=== PATIENT | male | born 1990 | race Caucasian/White ===

== ENCOUNTER 2023-02-26 16:24 | Emergency (ER) | payer SELFPAY ==
[2023-02-26 16:28] VITALS: BP 169/103; PULSE 95; RESP 16; TEMP 36.9; O2SAT 97
--- NOTE | 2023-02-26 17:23 | ED.GENADUL_ITS ---
Discharge Plan Disposition Patient Disposition: Home Discharge Details Clinical Impression: Avulsion of skin of finger Primary Care Provider: Arturo Hobbs ED Provider: Bola Coyle Home Meds and New Rx's Prescriptions: No Action lamotrigine 100 mg tablet 100 mg PO BID Patient Comments: TAKE 1 TABLET BY MOUTH TWICE DAILY Discharge Instructions Instructions: Skin Avulsion (ED), Skin Adhesive Care (ED) Additional Instructions: Watch for any signs of infection and return immediately to the emergency department if these occur. Otherwise keep wound clean and dry. Referrals: Primary Care Provider [Outside] (As needed for reassessment) Discharge Data Discharge Date/Time-TO BE ENTERED AT DEPARTURE: 02/26/23 17:35 Medical Decision Making Patient presenting the emergency department for chief complaint of left thumb injury. He was at work cutting an onion when the knife slipped and he lacerated the left thumb distal aspect. Patient denies any other injury or trauma, numbness tingling, or dysfunction of the extremity. Physical exam shows normal exam except for noted approximately 5 mm skin avulsion and flap to distal left thumb. Exam again is otherwise unremarkable and patient has normal function of the digit otherwise. Patient does have lidocaine allergy and Benadryl injection was offered but patient declined need given that he stated it was not severely painful. Flap was removed and skin adhesive was placed over avulsion once bleeding was controlled with tourniquet. Tourniquet was removed and appropriate hemostasis was achieved using this technique. Patient states he is up-to-date on his tetanus. After discussion of diagnosis and plan of care patient has no further needs, questions, or concerns and states clear understanding to return to the emergency department for any worsening symptoms. This documentation was generated using [employer] system, please disregard any oddities of phrase or misspellings. HPI General Mode of arrival: ambulatory . Date/Time Provider Initiated Documentation: 02/26/23 17:23 . Limitations to Documentation: no limitations . Information obtained by: patient and RN notes reviewed . History of Present Illness 32 year old M presents to the emergency department with the chief complaint of Left thumb laceration, described as mild, and is localized to the left and upper extremity. Patient reports no radiation. Patient started experiencing this minute(s) (30) and it has been constant. No relieving factors improve symptom(s), No exacerbating factors reported . Patient notes no other symptoms.. Patient did receive the following treatments prior to arrival, none Related Data Home Medications Medication Instructions Recorded Confirmed lamotrigine 100 mg tablet 100 mg PO BID 02/26/23 02/26/23 Allergies Allergy/AdvReac Type Severity Reaction Status Date / Time lidocaine AdvReac Unknown Unverified 02/26/23 16:31 General Stated Complaint: Laceration GONZALO: 3 Review of Systems Musculoskeletal Musculoskeletal: Reports as per HPI, Denies arthralgias, Denies numbness, Denies radiating pain into limb and Denies tingling Integumentary/Breasts Skin/Breast: Reports as per HPI and Reports wounds Neurologic Neurologic: Denies numbness and Denies tingling PFSH All Active Problems Avulsion of skin of finger (Acute) Social History Smoking/Tobacco Use Status: Current every day Tobacco Type: e-cigarettes Smoking risk assessment performed?: Yes Alcohol Intake: never Substance use type: does not use Housing: house Do you feel safe at home: Yes Do you feel safe in your relationship?: Yes Exam Const General: cooperative, no acute distress and not ill appearing Orientation: alert, awake and oriented x3 HENMT Mouth: moist mucous membranes Resp Effort & Inspection: normal respiratory effort, able to speak in complete sentences and no respiratory distress Neuro General: patient alert, patient awake, patient oriented x3, moves all extremities and no focal motor deficits Sensory Exam: no sensory deficits noted Extrem General: normal exam except as noted Left upper extremity: hand Details: laceration (Small skin avulsion/flap distal thumb) Course Vital Signs Vital signs: Vital Signs Temperature 36.9 C 02/26/23 16:28 Pulse 95 H 02/26/23 16:28 Respiratory Rate 16 02/26/23 16:28 Blood Pressure 169/103 H 02/26/23 16:28 Pulse Oximetry 97 02/26/23 16:28 Temperature 36.9 C 02/26/23 16:28 Temperature Source Skin 02/26/23 16:28 Pulse 95 H 02/26/23 16:28 Respiratory Rate 16 02/26/23 16:28 Respiratory Effort Normal 02/26/23 16:40 Blood Pressure 169/103 H 02/26/23 16:28 Blood Pressure Position Sitting 02/26/23 16:28 Pulse Oximetry 97 02/26/23 16:28 Oxygen Delivery Method Room Air 02/26/23 16:28 Oxygen Flow Rate 0 02/26/23 16:28 Pain Level 3 02/26/23 16:28
--- OUTSIDE RECORDS SUMMARY | 2023-02-26 17:33 | XMS_ITS | Continuity of Care Document ---
Author Name Unknown Organization [facility] Ambulatory Clinics Address [address] [place] [address] Care Team Providers Care Editing Intern Name Role Phone Sussy Casey MD Primary Care Physician [phone] Encounter [facility]BR [id number] Date(s): 04/04/22 - 04/04/22 [facility] Ambulatory Clinics [address] [place] [address]- Encounter Diagnosis Bipolar disorder(Discharge Diagnosis) - 04/04/22 Dyslipidemia(Discharge Diagnosis) - 04/04/22 Anxiety(Discharge Diagnosis) - 04/04/22 Fatty liver(Discharge Diagnosis) - 04/04/22 Need for vaccination(Discharge Diagnosis) - 04/04/22 Well adult exam(Discharge Diagnosis) - 04/04/22 Discharge Disposition: Home or Self Care Attending Physician: Sussy Casey MD Allergies, Adverse Reactions, Alerts Substance Reaction Severity Status lidocaine severe mo on tongue Severe Activ e Chantix psych reactions Unknown Active oxyCODONE Itchy Unknown Active Assessment and Plan Future Scheduled Tests Laboratory* CBC w/ Diff 04/04/22 * Comprehensive Metabolic Panel 04/04/22 Functional Status 04/04/22 Other exposure to Infectious Disease Non e Immunizations Given and Recorded Vaccine Date Status Refusal Reason tetanus/diphth/pertuss (Tdap) adult/adol 04/04/22 Given Medications ibuprofen 0 Refill(s) Start Date: 02/23/22 Status: Ordered lamoTRIgine 100 mg oral tablet 100 mg = 1 tab, Oral, BID, # 180 tab, 3 Refill(s), Pharmacy: [id number] Start Date: 03/05/22 Status: Ordered Tylenol 325 mg oral tablet 325 mg = 1 tab, Oral, every 4 hr, PRN as needed for pain, 0 Refill(s) Start Date: 02/23/22 Status: Ordered Problem List Condition Confirmation Course Effective Dates Status H ealth Status Informant Anxiety Confirmed Active Auditory hallucinations Confirmed Active Bipolar disorder Confirmed Active Dyslipidemia Confirmed Active Transaminitis Confirmed Active Insomnia Confirmed Active Major depressive disorder 1 Confirmed Active Morbid obesity Confirmed Active Pilonidal cyst Confirmed Active Fatty liver Confirmed Active Tobacco use Confirmed Active Ulcerative colitis 2 Confirmed Active 1remission status unspecified 2family history. Procedures Procedure Date Related Diagnosis Body Site Status Flap procedure 1 Complete d I and D 2 Completed Shoulder repair 3 Complet ed Tonsillectomy Completed 1bascom flap 02/17/2012 2Pilonidal cyst 12/07/2011 311/2010 Vital Signs Most recent to oldest [Reference Range]: 1 Peripheral Pulse Rate [60-100 bpm] 96 bp m (04/04/22 2:02 PM) Blood Pressure [90-140/60-90 mmHg] 120/8 2mmHg (04/04/22 2:02 PM) Weight 127.46 kg (04/04/22 2:02 PM) Weight Measured (lbs) 281.001 lb (04/04/22 2:02 PM) [place] Body Weight Calculated 73 kg (04/04/22 2:02 PM) Height 177.80 cm (04/04/22 2:02 PM) Height/Length Measured (inches) 70 inch (04/04/22 2:02 PM) BSA Measured 2.51 m2 (04/04/22 2:02 PM) Body Mass Index 40.32 kg/m2 (04/04/22 2:02 PM) Social History Social History Type Response Tobacco Never tobacco user T obacco Use:. Sex Physician Outpatient Note * Sussy Casey MD: PERFORM Event Display: Office Clinic Note Physician Authored Date: [id number] ANU FLORENTINO :1990 Age:31 years Sex:Male Visit Date:04/04/2022 Primary Care Physician: Sussy Casey MD Chief Complaint 3 Month Follow Up History of Present Illness Overall patient feels well today.?? Was having some more labile mood??and was concerned about a manic episode on last visit so his Lamictal was increased. ??He is now up to 100 mg twice a day. ??Overall he is very happy with this.?? His mood is good and he generally feels mellow. ??He has a new jobthat is better for him.?? No severe low mood. ??No hopelessness, suicidal or homicidal ideation. ??He does not feel manic. ??No increased impulsivity and he is usually sleeping well at night. ?? He does have a history of fatty liver. ??He is trying to watch his diet and his weight is stable. ??He is also cut down on alcohol. ??He very rarely drinks??and will only have about??2-4 when he does. ??No abdominal pain,??no acid reflux symptoms, no blood in stool or melena.?? No changes in bowel habit. Physical Exam Vitals & Measurements HR:??96??(Peripheral)?? BP:??120/82?? SpO2:??98%?? HT:??177.80??cm?? WT:??127.46??kg?? BMI:??40.32?? BSA:??2.51?? General: Alert and oriented, well nourished, no acute distress. Eye: EOMI, normal conjunctiva. HENT: Normocephalic, clear tympanic membranes, moist oral mucosa, no scleral icterus Neck: Supple, non-tender, ??no lymphadenopathy. Lungs: Clear to auscultation, non-labored respiration. Heart: Normal rate, regular rhythm, no murmur Abdomen: Soft, non-tender, non-distended, no HSM Psychiatric: Cooperative, appropriate mood and affect. Assessment/Plan 1.??Bipolar disorder??F31.9 Patient happy with current medications.?? Mood is good Ordered: CBC w/ Diff, Blood, Routine, 04/04/22, Once, Lab Collect, Bipolar disorder Anxiety Fatty liver,Order for future visit Comprehensive Metabolic Panel, Blood, Routine, 04/04/22, Once, Lab Collect, Bipolar disorder Anxiety Fatty liver, Order for future visit ?? 2.??Dyslipidemia??E78.5 Not yet due for repeat. ??Is trying to watch his diet. ?? 3.??Anxiety??F41.9 Ordered: CBC w/ Diff, Blood, Routine, 04/04/22, Once, Lab Collect, Bipolar disorder Anxiety Fatty liver,Order for future visit Comprehensive Metabolic Panel, Blood, Routine, 04/04/22, Once, Lab Collect, Bipolar disorder Anxiety Fatty liver, Order for future visit ?? 4.??Fatty liver??K76.0 Has cut down on alcohol. ??Will monitor. Ordered: CBC w/ Diff, Blood, Routine, 04/04/22, Once, Lab Collect, Bipolar disorder Anxiety Fatty liver,Order for future visit Comprehensive Metabolic Panel, Blood, Routine, 04/04/22, Once, Lab Collect, Bipolar disorder Anxiety Fatty liver, Order for future visit ?? 5.??Need for vaccination??Z23 Ordered: 26197 Tdap, when administered to individuals 7 years or older, for intramuscular use, 04/04/22 13:54:00 EST, 1, Need for vaccination ?? 6.??Well adult exam??Z00.00 ?? Future Orders CBC w/ Diff, Blood, Routine, 04/04/22, Once, Lab Collect, Bipolar disorder Anxiety Fatty liver,Order for future visit Comprehensive Metabolic Panel, Blood, Routine, 04/04/22, Once, Lab Collect, Bipolar disorder Anxiety Fatty liver, Order for future visit Problem List/Past Medical History Ongoing Anxiety Auditory hallucinations Bipolar disorder Dyslipidemia Fatty liver Insomnia Major depressive disorder Morbid obesity Pilonidal cyst Tobacco use Transaminitis Ulcerative colitis Historical No qualifying data Procedure/Surgical History ???Flap procedure???I and D???Shoulder repair???Tonsillectomy Medications ibuprofen lamoTRIgine 100 mg oral tablet, 100 mg= 1 tab, Oral, BID, 3 refills Tylenol 325 mg oral tablet, 325 mg= 1 tab, Oral, every 4 hr, PRN Allergies lidocaine??(severe mo on tongue) Chantix??(psych reactions) oxyCODONE??(Itchy) Social History Alcohol Current- Comments: on occasion Electronic Cigarette/Vaping Electronic Cigarette Use: Never. Tobacco Never tobacco user Tobacco Use:. Family History HTN - Hypertension: Mother. Electronically Signed on 04/04/22 02:54 PM Sussy Casey MD Patient Care team information Personnel Name: Sussy Casey MD Address: Address: [address] [place], [place] [address], [place] [address]
--- OUTSIDE RECORDS SUMMARY | 2023-02-26 17:33 | XMS_ITS | Continuity of Care Document ---
Author Name Unknown Organization [facility] Address [address] [place] [address] Care Team Providers Care Teacher Preschool Name Role Phone Danny Saenz DO Primary Care Physician Encounter [facility] N[facility] [id number] Date(s): 02/05/23 - 02/05/23 [facility] [address] [place], [place] [address] Discharge Disposition: Home Allergies, Adverse Reactions, Alerts Substance Reaction Severity Status lidocaine severe mo on tongue Severe Activ e Chantix psych reactions Unknown Active oxyCODONE Itchy Unknown Active Assessment and Plan Future Appointments Immunizations Given and Recorded Vaccine Date Status Refusal Reason tetanus/diphth/pertuss (Tdap) adult/adol 04/04/22 Given Medications ibuprofen 0 Refill(s) Start Date: 02/23/22 Status: Ordered lamoTRIgine 100 mg oral tablet 100 mg = 1 tab, Oral, BID, # 180 tab, 3 Refill(s), Pharmacy: [id number] Start Date: 03/05/22 Status: Ordered Tylenol 325 mg oral tablet 325 mg = 1 tab, Oral, every 4 hr, PRN as needed for pain, 0 Refill(s) Start Date: 02/23/22 Status: Ordered Problem List Condition Confirmation Course Effective Dates Status H ealt Status Informant Anxiety Confirmed Active Auditory hallucinations [...] 1bascom flap 02/17/2012 2Pilonidal cyst 12/07/2011 311/2010 Social History Social History Type Response Tobacco Never tobacco user T obacco Use:. Sex Patient Care team information Care Team Personnel Name: Pauline Solis Position: No Access Member Role: Nurse Practitioner Address: Address: [address] [place] [address] Name: Danny Saenz DO Position: Physician Member Role: Primary Care Physician Address: Address: [address] [place] [phone] Care Team Related Persons Name: JAEL FLORENTINO Address: Home [address] [place], [place] [id number] [facility] Name: TENZIN FLORENTINO Address: Home [address] [facility] [id number] Name: TENZIN FLORENTINO Address: [place] [address] [facility] [id number]
--- OUTSIDE RECORDS SUMMARY | 2023-02-26 17:33 | XMS_ITS | Continuity of Care Document ---
Author Name Unknown Organization [facility] Address [address] [place] [address] Care Team Providers Care Commercial Real Estate Agent Name Role Phone Danny Saenz DO Primary Care Physician [phone] Encounter [facility] [id number] Date(s): 02/04/23 - 02/04/23 [facility] [address] [place], [place] [address] Discharge Disposition: Home or Self Care Attending Physician: DAVID Camacho Admitting Physician: DAVID Camacho Allergies, Adverse Reactions, Alerts Substance Reaction Severity [...] BID, # 180 tab, 3 Refill(s), Pharmacy: [id number] Start Date: 03/05/22 Status: Ordered Tylenol 325 [...] 1bascom flap 02/17/2012 2Pilonidal cyst 12/07/2011 311/2010 Results Radiology Reports * Exam Date Time Procedure Performing Provider Status 02/04/23 6:15 PM XR Clavicle Right Marcela Celis [facility] (Verified) Notes: (XR Clavicle Right) Reason For Exam: Mid clavicle pain right side XR Clavicle Right PROCEDURE INFORMATION: Exam: XR Right Clavicle, Complete Exam date and time: 02/04/2023 6:12 PM Age: 32 years old Clinical indication: Unspecified injury of right shoulder and upper arm, initial encounter; Unspecified injury of right shoulder and upper arm, initial encounter; Additional info: Mid clavicle pain right side TECHNIQUE: Imaging protocol: Radiologic exam of the right clavicle. Complete exam. Views: Any number of views. COMPARISON: No relevant prior studies available. FINDINGS: Bones/joints: No fractures or bone lesions. No obvious dislocations. Soft tissues: No soft tissue abnormalities or radiopaque foreign bodies. No soft tissue gas. IMPRESSION: No acute findings in the right clavicle. THIS DOCUMENT HAS BEEN ELECTRONICALLY SIGNED BY NERY MERCER MD on 02/04/2023 06:55 PM Final Signed by: Nery Mercer MD Signed (Electronic Signature): 02/04/2023 6:55 pm Social History Social History Type Response Tobacco Never tobacco user T obacco Use:. Sex Patient Care team information Care Team Personnel Name: Pauline Solis Position: No Access Member Role: Nurse Practitioner Address: Address: [address] [place] [address] Name: Danny Saenz DO Position: Physician Member Role: Primary Care Physician Address: Address: [address] [place] [phone] Care Team Related Persons Name: JAEL FLORENTINO Address: [address] [id number] [facility] Name: TENZIN FLORENTINO Address: [place] [id number] Name: TENZIN FLORENTINO Address: [place] [id number]
--- OUTSIDE RECORDS SUMMARY | 2023-02-26 17:33 | XMS_ITS | Continuity of Care Document ---
Author Name Unknown Organization [facility] Ambulatory Clinics Address [address] [place] [address] Care Team Providers Care Speech And Hearing Clinic Director Name Role Phone Danny Saenz DO Primary Care Physician [phone] Encounter [facility] NBR [id number] Date(s): 02/04/23 - 02/04/23 [facility] Ambulatory Clinics [address] [place], [place] [address] Encounter Diagnosis Injury of right clavicle(Discharge Diagnosis) - 02/04/23 Discharge Disposition: Home or Self Care Attending Physician: DAVID Camacho Admitting Physician: DAVID Camacho Allergies, Adverse Reactions, Alerts Substance Reaction Severity Status lidocaine severe mo on tongue Severe Activ e Chantix psych reactions Unknown Active oxyCODONE Itchy Unknown Active Assessment and Plan Future Appointments Functional Status 02/04/23 Other exposure to Infectious Disease Non e Immunizations Given and Recorded Vaccine Date Status Refusal Reason tetanus/diphth/pertuss (Tdap) adult/adol 04/04/22 Given Medications ibuprofen 0 Refill(s) Start Date: 02/23/22 Status: Ordered lamoTRIgine 100 mg oral tablet 100 mg = 1 tab, Oral, BID, # 180 tab, 3 Refill(s), Pharmacy: [id number] Start Date: 03/05/22 Status: Ordered Tylenol 325 [...] Most recent to oldest [Reference Range]: 1 Temperature Tympanic [36.6-37.9 Deg C] 3 5.6 Deg C *LOW* (02/04/23 5:45 PM) Peripheral Pulse Rate [60-100 bpm] 99 bp m (02/04/23 5:45 PM) Respiratory Rate [12-24 br/min] 18 br/mi n (02/04/23 5:45 PM) Blood Pressure [90-140/60-90 mmHg] 149/1 02mmHg *HI* (02/04/23 5:45 PM) Mean Arterial Pressure, Cuff [65-140 mmH g] 118 mmHg (02/04/23 5:45 PM) Social History Social History Type Response Tobacco Never tobacco user T obacco Use:. 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 ??He noticed pain in his right clavicle area. ??Pain continues over the past week to??10 days.?? Now localizes up into the shoulder. ??Better when he turns his head. ??Denies any neck pain denies any lateral shoulder pain.?? He denies any numbness, tingling, weakness.?? He has had no history of similar.?? Denies any chest injury. Physical Exam Vitals & Measurements T:??35.6?C ??(Tympanic)?? HR:??99??(Peripheral)?? RR:??18?? BP:??149/102?? SpO2:??100%?? Pain Score:??10?? Well-appearing no acute distress passive range of motion of the shoulder shows no pain or tenderness. ??There is tenderness palpated mid clavicle this reproduces his symptoms. ??He has pain on crossarm testing.?? Minimal discomfort on rotator cuff??testing. ??Negative drop arm testing.?? Rotator cuff appears intact. Assessment/Plan 1.??Injury of right clavicle??S49.91XA X-ray of the right clavicle were negative for fracture.?? Suspect strain/contusion. ??Recommend follow-up if not improving. ??Gentle range of motion. ??Ice, anti-inflammatories. Ordered: XR Clavicle Right, 02/04/23 18:05:00 EDT, Routine, Reason: Mid clavicle pain right side, Transport Mode: Ambulatory, Injury of right clavicle, ABN Status: Not Required ?? Patient Instructions Recommend rest, ice, gentle range of motion recheck with primary care or orthopedics if not improving in the next 1 to 2 weeks.?? Gentle range of motion as instructed. Problem List/Past Medical History Ongoing Anxiety Auditory [...] Use:. Family History HTN - Hypertension: Mother. Immunizations Vaccine Date Status tetanus/diphth/pertuss (Tdap) adult/adol 04/04/2022 Given Electronically Signed on 02/04/23 06:20 PM DAVID Camacho Outpatient Summary note * DAVID Camacho: PERFORM Event Display: Ambulatory Patient Summary Authored Date: [id number] ANU FLORENTINO :1990 Age:32 years Sex:Male Visit Date:02/04/2023 Primary Care Physician: Danny Saenz DO Ambulatory Visit Instructions We would like to thank you for allowing us to assist you with your healthcare needs. The following includes patient education materials and information regarding your injury/illness. Your Next Steps Instructions From Your Care Team Recommend rest, ice, gentle range of motion recheck with primary care or orthopedics if not improving in the next 1 to 2 weeks.?? Gentle range of motion as instructed. Scheduled Future Appointments Monday 3:30 PM EST ?? With: Danny Saenz DO Where: [facility] Primary Care [facility] [address] [place] [address]- Status: Confirmed Medications What How Much When Instructions Unchanged acetaminophen (Tylenol 325 mg oral tablet) 1 tab Oral (given by mouth) Every 4 hours as needed for as needed for pain Unchanged ibuprofen Unchanged lamoTRIgine (lamoTRIgine 100 mg oral tablet) 1 tab Oral (given by mouth) 2 times a day Your Summary Your Diagnosis Injury of right clavicle Problems Ongoing - Any problem that you are currently receiving treatment for. Anxiety Auditory hallucinations Bipolar disorder Dyslipidemia Fatty liver Insomnia Major depressive disorder Morbid obesity Pilonidal cyst Tobacco use Transaminitis Ulcerative colitis Your Care Team Admitting Physician - DAVID Camacho Attending Physician - DAVID Camacho Primary Care Physician - Danny Saenz, DO Discharge Vitals Temperature??(Tympanic) 96.1 ??F (35.6 ??C) Heart Rate??(Peripheral) 99 Respiratory Rate?? 18 Blood Pressure?? 149/102?? Allergies lidocaine??(severe mo on tongue) Chantix??(psych reactions) oxyCODONE??(Itchy) Electronically Signed on: 02/04/2023 18:19 EDTSigned by:CIARAN Patient Care team information Care Team Personnel Name: Pauline Solis Position: No Access Member Role: Nurse Practitioner Address: Address: [address] [place] [address] [address] [place] [address]- Name: Danny Dandre, DO Position: Physician Member Role: Primary Care Physician Address: Address: [address] [place] [phone] [place] Care Team Related Persons Name: JAEL FLORENTINO Address: [address] [phone] [facility] Name: TENZIN FLORENTINO Address: [address] [id number] Name: TENZIN FLORENTINO Address: [address] [id number]
--- OUTSIDE RECORDS SUMMARY | 2023-02-26 17:33 | XMS_ITS | Continuity of Care Document ---
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 Name Role Phone Sussy Casey MD Primary Care Physician Encounter [facility] NBR [id number] Date(s): 05/06/22 - 05/06/[address] [id number] Discharge Disposition: Home or Self Care Attending Physician: Sussy Casey MD Admitting Physician: Sussy Casey MD Referring Physician: Sussy Casey MD Allergies, Adverse Reactions, Alerts Substance Reaction Severity Status lidocaine severe mo on tongue Severe Activ e Chantix psych reactions Unknown Active oxyCODONE Itchy Unknown Active Immunizations Given and Recorded Vaccine Date Status Refusal Reason tetanus/diphth/pertuss (Tdap) adult/adol 04/04/22 Given Medications ibuprofen 0 Refill(s) Start Date: 02/23/22 Status: Ordered lamoTRIgine 100 mg oral tablet 100 mg = 1 tab, Oral, BID, # 180 tab, 3 Refill(s), Pharmacy: [id number] Start Date: 03/05/22 Status: Ordered Tylenol 325 [...] flap 02/17/2012 2Pilonidal cyst 12/07/2011 311/2010 Results Laboratory List Name Date CBC w/ Diff 05/06/22 Comprehensive Metabolic Panel (CMP) 05/06 Automated Diff 05/06/22 Most recent to oldest [Reference Range]: 1 WBC [4.8-10.8 K/mcL] 6.7 K/mcL (05/06/22 11:42 AM) RBC [4.20-6.10 Million/mcL] 5.27 Million /mcL (05/06/22 11:42 AM) Neutro Auto [42.2-75.2 %] 61.7 % (05/06/22 11:42 AM) Lymph Auto [20.5-51.1 %] 29.4 % (05/06/22 11:42 AM) [place] Auto [1.7-9.3 %] 6.3 % (05/06/22 11:42 AM) Basophil Auto [0.0-0.8 %] 0.3 % (05/06/22 11:42 AM) BUN [8-26 mg/dL] 9 mg/dL (05/06/22 11:42 AM) Glucose Level [74-106 mg/dL] 95 mg/dL (05/06/22 11:42 AM) Potassium Level [3.5-5.1 mmol/L] 4.1 mmo l/L (05/06/22 11:42 AM) Baso Absolute [0.0-0.2 K/mcL] 0.0 K/mcL (05/06/22 11:42 AM) MCV [80.0-99.0 fL] 88.4 fL (05/06/22 11:42 AM) AST [15-41 IntlUnit/L] 33 IntlUnit/L (05/06/22 11:42 AM) ALT [17-63 IntlUnit/L] 46 IntlUnit/L (05/06/22 11:42 AM) MCHC [32.0-36.0 g/dL] 35.6 g/dL (05/06/22 11:42 AM) Osmolality [275-295 mOsm/kg] 274 mOsm/kg *LOW* (05/06/22 11:42 AM) Sodium Level [134-143 mmol/L] 138 mmol/L (05/06/22 11:42 AM) Lymph Absolute [1.2-3.4 K/mcL] 2.0 K/mcL (05/06/22 11:42 AM) Hct [37.0-52.0 %] 46.6 % (05/06/22 11:42 AM) Calcium Level [8.9-10.3 mg/dL] 9.2 mg/dL (05/06/22 11:42 AM) [place] Absolute [0.1-0.6 K/mcL] 0.4 K/mcL (05/06/22 11:42 AM) Albumin Level [3.5-5.0 g/dL] 4.2 g/dL (05/06/22 11:42 AM) Protein Total [6.5-8.1 g/dL] 7.1 g/dL (05/06/22 11:42 AM) MCH [27.0-31.0 pg] 31.5 pg *HI* (05/06/22 11:42 AM) Neutro Absolute [1.4-6.5 K/mcL] 4.1 K/mc L (05/06/22 11:42 AM) Bilirubin Total [0.2-1.2 mg/dL] 0.9 mg/d L (05/06/22 11:42 AM) Hgb [12.0-18.0 g/dL] 16.6 g/dL (05/06/22 11:42 AM) Alk Phos [38-130 IntlUnit/L] 77 IntlUnit /L (05/06/22 11:42 AM) MPV [7.4-10.4 fL] 11.0 fL *HI* (05/06/22 11:42 AM) Platelets [130-400 K/mcL] 164 K/mcL (05/06/22 11:42 AM) CO2 [22-32 mmol/L] 25 mmol/L (05/06/22 11:42 AM) Eos Absolute [0.0-0.2 K/mcL] 0.1 K/mcL (05/06/22 11:42 AM) Chloride Level [98-111 mmol/L] 100 mmol/ L (05/06/22 11:42 AM) RDW-CV [11.5-14.5 %] 12.4 % (05/06/22 11:42 AM) A/G Ratio 1.4 *NA* (05/06/22 11:42 AM) BUN/Creat Ratio [8.0-20.0] 12.5 (05/06/22 11:42 AM) Globulin 2.9 *NA* (05/06/22 11:42 AM) Imm Gran Absolute 0.03 *NA* (05/06/22 11:42 AM) Imm Gran Auto [0.0-0.5 %] 0.4 % (05/06/22 11:42 AM) Creatinine Level [0.61-1.24 mg/dL] 0.72 mg/dL (05/06/22 11:42 AM) Anion Gap [3.0-12.0] 13.0 *HI* (05/06/22 11:42 AM) Eos, Auto [0.00-3.00 %] 1.90 % (05/06/22 11:42 AM) eGFR CKD-EPI [>=60 mL/min/1.73 m2] 126 m L/min/1.73 m2 (05/06/22 11:42 AM) Social History Social History Type Response Tobacco Never tobacco user T obacco Use:. Sex Patient Care team information Personnel Name: Sussy Casey MD Address: Address: [address] [place] [address]
== END 2023-02-26 17:35 | disposition home or self-care (01) ==
LOC: ER 17:32
PROVIDERS: Emergency Provider Nurse Practitioner Family; PCP Family Medicine Adult Medicine
DX: S61.012A Laceration without foreign body of left thumb without damage to nail, initial encounter (principal); W26.0XXA Contact with knife, initial encounter
CPT/HCPCS: 99282